=== PATIENT | male | born 1960 | race Two or more races ===

== ENCOUNTER 2018-02-28 07:42 | Outpatient (CLI) | payer OTHER ==
[~2018-02-28 07:42] MED LIST: ATENOLOL50 MG; COZAAR25 MG; EPZICOM TABLET1 TAB; FENOFIBRATE145 MG; NORVIR100 MG; REYATAZ300 MG; TRICOR145 MG; VIREAD300 MG
== END 2018-02-28 07:47 | disposition home or self-care (01) ==
LOC: LAB 07:42
DX: B20 Human immunodeficiency virus [HIV] disease (principal)

== ENCOUNTER 2018-03-03 07:49 | Outpatient (CLI) | payer OTHER | END 2018-03-03 07:59 | disposition home or self-care (01) | LOC: LAB 07:49 | DX: J11.1 Influenza due to unidentified influenza virus with other respiratory manifestations (principal) ==

== ENCOUNTER 2018-03-30 13:00 | Outpatient (CLI) | payer OTHER | END 2018-03-30 13:01 | disposition home or self-care (01) | LOC: RAD 13:00 | DX: S42.232D 3-part fracture of surgical neck of left humerus, subsequent encounter for fracture with routine healing (principal) ==

== ENCOUNTER 2018-06-21 13:39 | Outpatient (CLI) | payer OTHER | END 2018-06-21 14:05 | disposition home or self-care (01) | LOC: RAD 13:39 | DX: S89.82XA Other specified injuries of left lower leg, initial encounter (principal); M19.91 Primary osteoarthritis, unspecified site ==

== ENCOUNTER 2018-12-25 03:06 | Emergency (ER) | payer OTHER ==
[~2018-12-25] VITALS: Ht 177.8 cm; Wt 77.1 kg
[2018-12-25] MEDS ORDERED: DUI500 PO (06:19)
[2018-12-25] MEDS ORDERED: CEFUROXIME500 MG PO (06:19)
[2018-12-25] MEDS ORDERED: KETO10TA2 PO (06:19)
[2018-12-25] MEDS ORDERED: MUPIROCIN22 GM TOP (06:22)
== END 2018-12-25 18:27 | disposition home or self-care (01) ==
LOC: ER 03:06
DX: S01.81XA Laceration without foreign body of other part of head, initial encounter (principal); S02.2XXA Fracture of nasal bones, initial encounter for closed fracture; W18.39XA Other fall on same level, initial encounter; Y93.89 Activity, other specified; Y92.488 Other paved roadways as the place of occurrence of the external cause; Y99.8 Other external cause status

== ENCOUNTER 2019-01-14 03:30 | Emergency (ER) | payer OTHER ==
[~2019-01-14] VITALS: Ht 177.8 cm; Wt 77.1 kg
[~2019-01-14 03:30] MED LIST changes: +CEFUROXIME500 MG PO; +DUI500 PO; +KETO10TA2 PO; +MUPIROCIN22 GM TOP
== END 2019-01-14 07:49 | disposition home or self-care (01) ==
LOC: ER 03:30
DX: S01.121A Laceration with foreign body of right eyelid and periocular area, initial encounter (principal); X58.XXXA Exposure to other specified factors, initial encounter; Y93.89 Activity, other specified; Y92.89 Other specified places as the place of occurrence of the external cause; Y99.8 Other external cause status

== ENCOUNTER → 2019-05-05 | Emergency (ER) | payer OTHER ==
[~2019-05-05] VITALS: Ht 177.8 cm; Wt 79.4 kg
== END | disposition home or self-care (01) ==
LOC: ER 15:13
DX: L03.116 Cellulitis of left lower limb (principal)

== ENCOUNTER → 2020-09-30 | Outpatient (CLI) | payer OTHER | END | disposition home or self-care (01) | LOC: RAD 10:18 | PROVIDERS: ATTEND Physical Medicine & Rehabilitation | DX: M50.323 Other cervical disc degeneration at C6-C7 level (principal) ==

== ENCOUNTER 2020-11-05 08:22 | Outpatient (CLI) | payer OTHER | END 2020-11-05 08:54 | disposition home or self-care (01) | LOC: NUCLEAR 08:22 | PROVIDERS: ATTEND Internal Medicine Infectious Disease | DX: B20 Human immunodeficiency virus [HIV] disease (principal); I65.21 Occlusion and stenosis of right carotid artery ==

== ENCOUNTER → 2025-05-02 | Emergency (ER) | payer OTHER ==
[~2025-05-02] VITALS: Ht 175.3 cm; Wt 74.8 kg
[~2025-05-02] MED LIST changes: +BIKTARVY 50-201 EACH; +MECLIZINE HCL 25 MG TABLET PO ONE; +MECLIZINE HCL25 MG PO; +ONDANSETRON HCL 2 MG/ML VIAL IV ONE; +ONDANSETRON HCL 2 MG/ML VIAL ONE
[2025-05-02 15:19] LABS: BASO % 0.4 % (0.1-1.2); EOS % 2.8 % (0.7-7.0); HEMATOCRIT 44.5 % (40.1-51.0); HEMOGLOBIN 15.4 g/dL (13.7-17.5); LYMPH # 4.09 (1.18-3.74); LYMPH % 58.3 % (19.3-53.1); MEAN CORPUSCULAR HEMOGLOBIN 32.2 pg (25.6-32.2); MONO # 0.72 (0.24-0.82); MONO % 10.3 % (4.7-12.5); NEUT # 1.97 (1.56-6.13); NEUT % 28.1 % (34.0-71.1); PLATELET COUNT 307 K/uL (163-369); RED BLOOD COUNT 4.79 M/uL (4.63-6.08); RED CELL DISTRIBUTION WIDTH 11.7 % (11.6-14.4)
== END | disposition home or self-care (01) ==
LOC: ER 12:57
PROVIDERS: General Practice
DX: R42 Dizziness and giddiness (principal); Z91.018 Allergy to other foods

== ENCOUNTER 2025-10-17 08:00 | Day surgery (SDC) | payer OTHER ==
[~2025-10-17 08:00] MED LIST changes: -COZAAR25 MG; +COZAAR25 MG PO; -MECLIZINE HCL 25 MG TABLET PO ONE; -ONDANSETRON HCL 2 MG/ML VIAL IV ONE; -ONDANSETRON HCL 2 MG/ML VIAL ONE; +PROTONIX40 MG PO
[2025-10-17] MEDS ORDERED: METRONIDAZOLE/SODIUM CHLORIDE 500 MG/100 ML PIGGYBACK IV ONE (09:02)
[2025-10-17] MEDS ORDERED: CEFTRIAXONE SODIUM 2,000 MG VIAL ONE (09:02)
[2025-10-17] MEDS ORDERED: LIDOCAINE HCL 1%/EPINEPHRINE 20ML VIAL IJ ONE (10:56)
[2025-10-17] MEDS ORDERED: BUPIVACAINE HCL/MPF 0.5% 30ML VIAL ONE (10:56)
[2025-10-17] MEDS ORDERED: DIBUCAINE 30 GM TUBE ONE (10:56)
[2025-10-17] MEDS ORDERED: HEMOSTATIC MATRIX 1 KIT KIT TOP ONE (10:56)
[2025-10-17] MEDS ORDERED: POVIDONE-IODINE 118 ML BOTT TOP ONE (10:56)
[2025-10-17] MEDS ORDERED: PERCOCET 5-3251 EACH PO (12:03)
[2025-10-17] MEDS ORDERED: RECTICARE30 GM TOP (12:03)
== END 2025-10-17 17:10 | disposition home or self-care (01) ==
LOC: CIR.AMB 08:00
PROVIDERS: ATTEND Surgery
DX: D01.3 Carcinoma in situ of anus and anal canal (principal); D12.9 Benign neoplasm of anus and anal canal; A63.0 Anogenital (venereal) warts